=== PATIENT | male | born 1970 | race Caucasian/White ===

== ENCOUNTER → 2017-12-15 | Outpatient (CLI) | payer MEDICARE | LOC: M OUTALCOH 08:03 | DX: Z13.9 Encounter for screening, unspecified (principal) | CPT/HCPCS: H0001 ==

== ENCOUNTER 2017-12-22 14:20 | Outpatient (RCR) | payer MEDICARE | END 2018-01-04 | LOC: M OUTALCOH 14:20 | DX: F14.20 Cocaine dependence, uncomplicated (principal); F12.10 Cannabis abuse, uncomplicated | CPT/HCPCS: 90834 ==